=== PATIENT | male | born 1935 | race Caucasian/White ===

== ENCOUNTER → 2021-03-19 14:23 | Outpatient (BNVA) | payer OTHER, SELFPAY | PROVIDERS: Family Provider Internal Medicine; PCP Family Medicine; Visit Provider Podiatrist Foot & Ankle Surgery | DX: M25.571 Pain in right ankle and joints of right foot (principal) | CPT/HCPCS: 73630 ==

== ENCOUNTER → 2023-03-05 13:08 | Outpatient (BNVA) | payer OTHER, SELFPAY | PROVIDERS: Family Provider Internal Medicine; PCP Family Medicine; Visit Provider Nurse Practitioner Family | DX: L57.0 Actinic keratosis (principal); C44.622 Squamous cell carcinoma of skin of right upper limb, including shoulder; C44.529 Squamous cell carcinoma of skin of other part of trunk; L57.8 Other skin changes due to chronic exposure to nonionizing radiation; L85.3 Xerosis cutis; D69.2 Other nonthrombocytopenic purpura; L81.4 Other melanin hyperpigmentation; D22.5 Melanocytic nevi of trunk; Z71.89 Other specified counseling | CPT/HCPCS: 17004; 99214 ==

== ENCOUNTER → 2023-09-23 13:24 | Outpatient (BNVA) | payer OTHER, SELFPAY | PROVIDERS: Family Provider Internal Medicine; PCP Family Medicine; Visit Provider Nurse Practitioner Family | DX: C44.629 Squamous cell carcinoma of skin of left upper limb, including shoulder (principal); C44.622 Squamous cell carcinoma of skin of right upper limb, including shoulder; C44.529 Squamous cell carcinoma of skin of other part of trunk; D69.2 Other nonthrombocytopenic purpura; D48.5 Neoplasm of uncertain behavior of skin; L57.0 Actinic keratosis; L57.8 Other skin changes due to chronic exposure to nonionizing radiation; L85.3 Xerosis cutis; D22.5 Melanocytic nevi of trunk; L81.4 Other melanin hyperpigmentation | CPT/HCPCS: 17000; 17110; 99214 ==

== ENCOUNTER → 2023-12-07 14:40 | Outpatient (BNVA) | payer OTHER, SELFPAY | PROVIDERS: Family Provider Internal Medicine; PCP Family Medicine; Visit Provider Nurse Practitioner Family | DX: C44.629 Squamous cell carcinoma of skin of left upper limb, including shoulder (principal); C44.622 Squamous cell carcinoma of skin of right upper limb, including shoulder; C44.529 Squamous cell carcinoma of skin of other part of trunk; D69.2 Other nonthrombocytopenic purpura; L57.0 Actinic keratosis; L57.8 Other skin changes due to chronic exposure to nonionizing radiation; L85.3 Xerosis cutis; L81.4 Other melanin hyperpigmentation; D22.5 Melanocytic nevi of trunk; D48.5 Neoplasm of uncertain behavior of skin | CPT/HCPCS: 11102; 17000; 99214 ==

== ENCOUNTER → 2024-01-04 09:24 | Outpatient (BNVA) | payer OTHER, SELFPAY | PROVIDERS: Family Provider Internal Medicine; PCP Family Medicine; Visit Provider Dermatology | DX: C44.329 Squamous cell carcinoma of skin of other parts of face (principal); D48.5 Neoplasm of uncertain behavior of skin | CPT/HCPCS: 11102; 14041; 17311 ==

== ENCOUNTER → 2024-03-07 13:15 | Outpatient (BNVA) | payer OTHER, SELFPAY | PROVIDERS: Family Provider Internal Medicine; PCP Family Medicine; Visit Provider Dermatology | DX: C43.4 Malignant melanoma of scalp and neck (principal); L57.0 Actinic keratosis | CPT/HCPCS: 17000; 99214 ==

== ENCOUNTER → 2024-06-14 13:32 | Outpatient (BNVA) | payer OTHER, SELFPAY | PROVIDERS: Family Provider Internal Medicine; PCP Family Medicine; Visit Provider Dermatology | DX: C43.4 Malignant melanoma of scalp and neck (principal); L57.0 Actinic keratosis; L85.3 Xerosis cutis; Z85.828 Personal history of other malignant neoplasm of skin | CPT/HCPCS: 17004; 17281; 99214 ==

== ENCOUNTER → 2024-07-06 13:36 | Outpatient (BNVA) | payer OTHER, SELFPAY | PROVIDERS: Family Provider Internal Medicine; PCP Family Medicine; Visit Provider Dermatology | DX: C43.4 Malignant melanoma of scalp and neck (principal); L82.1 Other seborrheic keratosis; L57.0 Actinic keratosis; L57.8 Other skin changes due to chronic exposure to nonionizing radiation | CPT/HCPCS: 11626; 12042; 17000; 99213 ==

== ENCOUNTER → 2024-12-05 12:45 | Outpatient (BNVA) | payer OTHER, SELFPAY | PROVIDERS: Family Provider Internal Medicine; PCP Family Medicine; Visit Provider Nurse Practitioner Family | DX: C44.629 Squamous cell carcinoma of skin of left upper limb, including shoulder (principal); C44.529 Squamous cell carcinoma of skin of other part of trunk; C44.622 Squamous cell carcinoma of skin of right upper limb, including shoulder; Z85.820 Personal history of malignant melanoma of skin; Z08 Encounter for follow-up examination after completed treatment for malignant neoplasm; Z85.828 Personal history of other malignant neoplasm of skin; D48.5 Neoplasm of uncertain behavior of skin; L57.0 Actinic keratosis | CPT/HCPCS: 11102; 17000; 99213 ==